=== PATIENT | female | born 1945 | race Two or more races ===

== ENCOUNTER 2021-08-06 11:07 | Outpatient (CLI) | payer OTHER ==
[~2021-08-06 11:07] MED LIST: AVAPRO300 MG PO; GLIMEPIRIDE4 M1 PO; GLUMETZA1000 MG PO; IRBESARTAN-HCT1 EAC1; VITAMIN D31250 MCG
== END 2021-08-06 11:56 | disposition home or self-care (01) ==
LOC: LAB 11:07
PROVIDERS: ATTEND Obstetrics & Gynecology
DX: R10.2 Pelvic and perineal pain (principal); N92.5 Other specified irregular menstruation

== ENCOUNTER 2021-08-09 07:04 | Day surgery (SDC) | payer OTHER ==
[2021-08-09] MEDS ORDERED: NAPR500T14 PO (09:47)
[2021-08-09] MEDS ORDERED: MORGIDOX100 MG PO (09:47)
== END 2021-08-09 15:00 | disposition home or self-care (01) ==
LOC: CIR.AMB 07:04
PROVIDERS: ATTEND Obstetrics & Gynecology
DX: C54.1 Malignant neoplasm of endometrium (principal); Z20.822 Contact with and (suspected) exposure to COVID-19

== ENCOUNTER 2022-07-04 09:18 | Outpatient (CLI) | payer OTHER ==
[~2022-07-04 09:18] MED LIST changes: +MORGIDOX100 MG PO; +NAPR500T14 PO
== END 2022-07-04 09:20 | disposition home or self-care (01) ==
LOC: LAB 09:18
PROVIDERS: ATTEND Radiology Diagnostic Radiology
DX: C54.1 Malignant neoplasm of endometrium (principal)

== ENCOUNTER 2022-07-19 07:39 | Outpatient (CLI) | payer OTHER | END 2022-07-19 07:46 | disposition home or self-care (01) | LOC: MRI 07:39 | PROVIDERS: ATTEND Obstetrics & Gynecology | DX: C54.1 Malignant neoplasm of endometrium (principal) | CPT/HCPCS: 72197; 74183; Q9965; 72196; 74182 ==

== ENCOUNTER → 2023-04-17 | Outpatient (CLI) | payer OTHER | END | disposition home or self-care (01) | LOC: NUCLEAR 07:00 | PROVIDERS: ATTEND Obstetrics & Gynecology Gynecologic Oncology | DX: C54.1 Malignant neoplasm of endometrium (principal) | CPT/HCPCS: 78815; A9552 ==